=== PATIENT | female | born 1955 | race Caucasian/White ===

== ENCOUNTER 2018-10-19 08:25 | Outpatient (CLI) | payer OTHER ==
[~2018-10-19 08:25] MED LIST: IOVERSOL 320 100 ML VIAL IVP ONE
[2018-10-19] MEDS ORDERED: IOVERSOL 320 100 ML VIAL IVP ONE (08:33)
== END 2018-10-19 08:26 | disposition home or self-care (01) ==
LOC: DI 08:25
PROVIDERS: ATTEND Internal Medicine
DX: Z53.9 Procedure and treatment not carried out, unspecified reason (principal)

== ENCOUNTER 2018-11-10 08:54 | Outpatient (CLI) | payer OTHER ==
[2018-11-10] MEDS ORDERED: IOVERSOL 320 100 ML VIAL IVP ONE (09:17)
== END 2018-11-10 08:55 | disposition home or self-care (01) ==
LOC: DI 08:54
PROVIDERS: ATTEND Internal Medicine
DX: Z53.9 Procedure and treatment not carried out, unspecified reason (principal)

== ENCOUNTER 2023-02-03 11:25 | Outpatient (CLI) | payer OTHER ==
[2023-02-03 11:37] LABS: INR 2.8 (0.8-1.2); PT - PROTHROMBIN TIME 29.2 secs (9.9-12.6)
== END 2023-02-03 11:26 | disposition home or self-care (01) ==
LOC: LAB.R 11:25
PROVIDERS: ATTEND Pharmacist
DX: D68.62 Lupus anticoagulant syndrome (principal)
CPT/HCPCS: 85610